=== PATIENT | female | born 1970 | race Caucasian/White ===

== ENCOUNTER 2017-11-03 17:40 | Emergency (ER) | payer OTHER ==
[2017-11-03] MEDS ORDERED: Phenergan 25 MG INJ IM ONE ×2 (19:34→21:15)
[2017-11-03] MEDS ORDERED: Hydromorphone 1 mg/ml Ampule IM ONE (19:34)
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
[2017-11-03] MEDS ORDERED: DILAUDID 2 MG INJECTION ONE (19:43)
[2017-11-03] MEDS ORDERED: Phenergan 25 MG INJ ONE ×2 (19:43→21:16)
[2017-11-03 20:03] LABS: Appearance CLEAR (CLEAR); Bilirubin NEGATIVE (NEGATIVE); Blood NEGATIVE Ery/ul (0-5); Glucose NEGATIVE (NEGATIVE); Ketones NEGATIVE (NEGATIVE); Leukocyte Esterase NEGATIVE (NEGATIVE); Nitrite NEGATIVE (NEGATIVE); Protein,Urine Dip NEGATIVE (Negative); Urobilinogen NORMAL mg/dL (0-1)
[2017-11-03 21:40] VITALS: BP 110/67; PULSE 100; O2SAT 100
== END 2017-11-03 21:39 | disposition home or self-care (01) ==
LOC: ED 17:40
DX: M54.31 Sciatica, right side (principal); I10 Essential (primary) hypertension; E11.9 Type 2 diabetes mellitus without complications; M79.7 Fibromyalgia; R20.0 Anesthesia of skin; Z79.899 Other long term (current) drug therapy
CPT/HCPCS: 81002; 96372; 99284; J1170; J2550

== ENCOUNTER 2021-03-17 20:17 | Observation (INO) | payer OTHER ==
[2021-03-17] MEDS ORDERED: Zofran 4 MG/2 ML VIAL IV ONE (20:33)
[2021-03-17] MEDS ORDERED: Sodium Chloride 0.9% 1000 ML 1,000 ML IV STA (20:33)
[2021-03-17] MEDS ORDERED: MORPHINE SULFATE 4 MG INJ IV ONE (20:33)
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
[2021-03-17 21:10] LABS: Appearance SLIGHTLY CLOUDY (CLEAR); Bacteria RARE /HPF (NEGATIVE); Bilirubin NEGATIVE (NEGATIVE); Blood NEGATIVE Ery/ul (0-5); Epithelial Cells FEW /HPF (FEW); Glucose NEGATIVE (NEGATIVE); Ketones NEGATIVE (NEGATIVE); Leukocyte Esterase NEGATIVE (NEGATIVE); Mucus SLIGHT /HPF (NEGATIVE); Nitrite NEGATIVE (NEGATIVE); Protein,Urine Dip NEGATIVE (Negative); Specific Gravity 1.016 (1.005-1.025); Urobilinogen NEGATIVE mg/dL (0-1); WBC 0-2 /HPF (0-5)
[2021-03-17] MEDS ORDERED: Zofran 4 MG/2 ML VIAL ONE (21:12)
[2021-03-17] MEDS ORDERED: Sodium Chloride 0.9% 1000 ML 1,000 ML ONE (21:12)
[2021-03-17] MEDS ORDERED: MORPHINE SULFATE 4 MG INJ ONE (21:12)
[2021-03-17 21:27] LABS: Absolute Neutrophil Ct (ANC) 15.09 (1.4-6.9); BASOPHIL % 0.2 % (0.0-0.4); Basophil (Absolute #) 0.03 (0-0.4); Eosinophil % 1.2 % (0.00-5.0); Eosinophil (Absolute #) 0.21 (0-0.5); Hemoglobin 14.7 gm/dl (12.0-16.0); Lymphocyte (Absolute #) 1.29 (1.0-4.6); Lymphocytes % 7.3 % (24.0-44.0); Mean Cell Volume 97.5 fl (78-100); Mean Corpuscular Hemoglobin 30.5 pg (26-32); Mean Corpuscular Hgb Concent. 31.3 g/dl (32-36); Mean Platelet Volume 10.7 fl (7.5-11.0); Monocyte (Absolute #) 1.08 (0.0-1.3); Monocytes % 6.1 % (0.0-12.0); Neutrophil % 85.2 % (36.0-66.0); Platelet Count 230 K/mm3 (150-450); Red Blood Count 4.82 M/mm3 (4.1-5.4); Red Cell Distribution Width 14.6 % (11.5-14.0); White Blood Count 17.7 K/mm3 (4.0-10.5)
[2021-03-17 21:40] LABS: ALBUMIN 4.3 g/dL (3.5-5.0); ALKALINE PHOSPHATASE 113 U/L (38-126); ANION GAP 13.6 MEQ/L (5-15); BLOOD UREA NITROGEN 11 mg/dL (7-17); CHLORIDE 100 mmol/L (98-107); Calcium 9.3 mg/dL (8.4-10.2); Carbon Dioxide 30 mmol/L (22-30); Creatinine 1 0.89 mg/dL (0.52-1.04); EST GLOMERULAR FILTRATION RATE > 60.0 ML/MIN; Glucose 122 mg/dL (74-106); Potassium 4.6 mmol/L (3.5-5.1); SGOT/AST 55 U/L (14-36); SGPT/ALT 35 U/L (0-35); SODIUM 138 mmol/L (137-145); Total Protein 7.8 g/dL (6.3-8.2)
[2021-03-17] MEDS ORDERED: LEVOFLOXACIN 750MG/150ML D5W 750 MG/150 ML BAG IV STA (22:15)
[2021-03-17] MEDS ORDERED: FLAGYL 500 MG IVPB 500 MG/100 ML BAG IV STA (22:15)
[2021-03-17] MEDS ORDERED: FLAGYL 500 MG IVPB 500 MG/100 ML BAG IV ONE (22:19)
[2021-03-17] MEDS ORDERED: LEVOFLOXACIN 750MG/150ML D5W 750 MG/150 ML BAG IV ONE (23:08)
[2021-03-18] MEDS ORDERED: DUONEB 0.5-3 MG/3 ml Neb IH PRN (02:16)
[2021-03-18] MEDS ORDERED: Zofran 4 MG/2 ML VIAL IV PRN (02:16)
[2021-03-18] MEDS: FLAGYL 500 MG IVPB 500 MG/100 ML BAG IV SCH ×4 (02:30→18:01)
[2021-03-18] MEDS: Sodium Chloride 0.9% 1000 ML 1,000 ML IV SCH ×3 (02:50→23:18)
[2021-03-18] MEDS: MORPHINE SULFATE 2 MG INJ IV PRN ×2 (02:50→07:46)
--- NOTE | 2021-03-18 08:38 | XRAY ---
Indication: Left back/abdomen/pelvis pain 3 days. No known injury. Multiple contiguous images obtained through the abdomen and pelvis without contrast. Comparison: September 02, 2012. Lung bases again demonstrates minimal dependent atelectasis. New 1 cm irregular left lower lobe noncalcified nodule considered indeterminant at this time. No infiltrate or effusion. Heart is not enlarged. New L4-L5 posterior fusion hardware and left back epidural stimulator device produces beam artifact limiting these levels. Noncontrasted stomach and bowel loops appear nonobstructed. Normal appendix. Mild fecal debris predominantly in the right hemicolon. Again descending and sigmoid colonic diverticulosis. Proximal sigmoid colon now demonstrates mild wall thickening with pericolonic stranding favoring diverticulitis. No free fluid/air. Again cholecystectomy. Interval hysterectomy. New 24 cm fatty hepatomegaly. Remaining liver, pancreas, spleen, adrenal glands, kidneys, ureters, bladder, and aorta are unremarkable for noncontrast exam. Osseous structures intact with minimal degenerative changes throughout the thoracolumbar spine. Impression: 1. Again colonic diverticulosis with new mild proximal sigmoid diverticulitis. No complications. 2. New 1 cm indeterminate left lower lobe noncalcified irregular nodule. Outside comparison studies recommended if available. If not available, CT chest with contrast exam may yield further information. 3. New fatty hepatomegaly, L4-L5 posterior fusion, and epidural stimulator device/leads.
[2021-03-18] MEDS: TYLENOL 325 MG PO PRN ×2 (08:41→18:54)
[2021-03-18] MEDS: PROTONIX 40 MG IV IV SCH (10:02)
[2021-03-18] MEDS ORDERED: DULAGLUTIDE 4.5 MG SQ SCH (10:30)
[2021-03-18] MEDS ORDERED: MEDICATION INTERVENTION MC SCH ×4 (10:45)
[2021-03-18] MEDS: TOPIRAMATE PO SCH ×2 (11:02→21:51)
[2021-03-18] MEDS: Cyclobenzaprine 10 MG PO SCH ×3 (11:02→21:51)
[2021-03-18] MEDS: ZOCOR 20MG PO SCH (11:02)
[2021-03-18] MEDS: THERAGRAN MULTIVITAMIN PO SCH (11:02)
[2021-03-18] MEDS: SYNTHROID 25 MCG PO SCH (11:03)
[2021-03-18] MEDS: BUMEX 1 MG PO SCH (11:03)
[2021-03-18] MEDS: Klor Con 10 MEQ PO SCH (11:03)
[2021-03-18] MEDS: XANAX 1 MG PO SCH ×3 (11:03→21:51)
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
[2021-03-18] MEDS ORDERED: AMITRIPTYLINE HCL 150 MG PO SCH (22:00)
[2021-03-18] MEDS ORDERED: LEVOFLOXACIN 750MG/150ML D5W 750 MG/150 ML BAG IV SCH (22:00)
[2021-03-19] MEDS: FLAGYL 500 MG IVPB 500 MG/100 ML BAG IV SCH ×2 (00:21→06:19)
[2021-03-19 05:11] LABS: Absolute Neutrophil Ct (ANC) 5.64 (1.4-6.9); BASOPHIL % 0.4 % (0.0-0.4); Basophil (Absolute #) 0.03 (0-0.4); Eosinophil % 4.3 % (0.00-5.0); Eosinophil (Absolute #) 0.33 (0-0.5); Hematocrit 41.5 % (35-47); Hemoglobin 12.8 gm/dl (12.0-16.0); Lymphocyte (Absolute #) 1.03 (1.0-4.6); Lymphocytes % 13.5 % (24.0-44.0); Mean Cell Volume 98.1 fl (78-100); Mean Corpuscular Hemoglobin 30.3 pg (26-32); Mean Corpuscular Hgb Concent. 30.8 g/dl (32-36); Mean Platelet Volume 11.1 fl (7.5-11.0); Monocyte (Absolute #) 0.58 (0.0-1.3); Monocytes % 7.6 % (0.0-12.0); Neutrophil % 74.2 % (36.0-66.0); Platelet Count 171 K/mm3 (150-450); Red Blood Count 4.23 M/mm3 (4.1-5.4); Red Cell Distribution Width 14.7 % (11.5-14.0); White Blood Count 7.6 K/mm3 (4.0-10.5)
[2021-03-19 05:28] LABS: ALBUMIN 3.6 g/dL (3.5-5.0); BLOOD UREA NITROGEN 8 mg/dL (7-17); CHLORIDE 107 mmol/L (98-107); Calcium 8.9 mg/dL (8.4-10.2); Carbon Dioxide 22 mmol/L (22-30); Creatinine 1 0.71 mg/dL (0.52-1.04); EST GLOMERULAR FILTRATION RATE > 60.0 ML/MIN; SGPT/ALT 43 U/L (0-35)
[2021-03-19 05:59] LABS: ALKALINE PHOSPHATASE 87 U/L (38-126); Glucose 91 mg/dL (74-106); SGOT/AST 44 U/L (14-36); SODIUM 137 mmol/L (137-145)
--- NOTE | 2021-03-19 08:21 | PCM.NOTE ---
Date and Time: 03/19/21819 Subjective Assessment: doing better - Review of Systems Constitutional: No Fever, No Chills Eyes: No Symptoms Ears, Nose, & Throat: No Symptoms Respiratory: No Cough, No Short Of Breath Cardiac: No Chest Pain, No Edema, No Syncope Abdominal/Gastrointestinal: No Abdominal Pain, No Nausea, No Vomiting, No Diarrhea Genitourinary Symptoms: No Dysuria Musculoskeletal: No Back Pain, No Neck Pain Skin: No Rash Neurological: No Dizziness, No Focal Weakness, No Sensory Changes Psychological: No Symptoms Endocrine: No Symptoms Hematologic/Lymphatic: No Symptoms Immunological/Allergic: No Symptoms Objective Exam General Appearance: no apparent distress, alert Neurologic Exam: alert, oriented x 3, cooperative, normal mood/affect, nml cerebellar function, sensation nml, No motor deficits Skin Exam: normal color, warm, dry Eye Exam: PERRL, EOMI, eyes nml inspection Ears, Nose, Throat Exam: normal ENT inspection, pharynx normal, moist mucous membranes Neck Exam: normal inspection, non-tender, supple, full range of motion Respiratory Exam: normal breath sounds, lungs clear, No respiratory distress Cardiovascular Exam: regular rate/rhythm, normal heart sounds Gastrointestinal/Abdomen Exam: soft, No tenderness, No mass Extremity Exam: normal inspection, normal range of motion Back Exam: normal inspection, normal range of motion, No CVA tenderness, No vertebral tenderness Pelvic Exam: deferred Rectal Exam: deferred OBJECTIVE DATA Vital Signs: Vital Signs - 24 hr Temp Pulse Resp BP Pulse Ox 03/19/21 04:00 97.5 F 86 20 148/91 97 03/19/21 00:00 96.6 F 86 16 151/90 97 03/18/21 20:00 98.0 F 92 H 16 155/83 96 03/18/21 16:00 98.0 F 100 H 20 140/73 95 03/18/21 12:00 97.8 F 96 H 16 118/61 95 Pain Assessment - Last Documented Pain Intensity [Back] 9 Pain Intensity 7 Pain Scale Used 0-10 Pain Scale Intake and Output: Intake & Output 03/16/21 03/17/21 03/18/21 03/19/21 11:59 11:59 11:59 11:59 Intake Total 240 1839 Output Total 1250 Balance 240 589 Weight 109.6 kg Lab Results: Lab Results-Last 24 Hours 03/18/21 03/18/21 03/18/21 Range/Units 11:29 16:29 20:28 WBC (4.0-10.5) K/mm3 RBC (4.1-5.4) M/mm3 Hgb (12.0-16.0) gm/dl Hct (35-47) % MCV (78-100) fl MCH (26-32) pg MCHC (32-36) g/dl RDW (11.5-14.0) % Plt Count (150-450) K/mm3 MPV (7.5-11.0) fl Gran % (36.0-66.0) % Eos # (Auto) (0-0.5) Absolute Lymphs (auto) (1.0-4.6) Absolute Monos (auto) (0.0-1.3) Lymphocytes % (24.0-44.0) % Monocytes % (0.0-12.0) % Eosinophils % (0.00-5.0) % Basophils % (0.0-0.4) % Absolute Granulocytes (1.4-6.9) Basophils # (0-0.4) Sodium (137-145) mmol/L Potassium (3.5-5.1) mmol/L Chloride (98-107) mmol/L Carbon Dioxide (22-30) mmol/L Anion Gap (5-15) MEQ/L BUN (7-17) mg/dL Creatinine (0.52-1.04) mg/dL Estimated GFR ML/MIN Glucose (74-106) mg/dL POC Glucometer 113 H 108 H 109 H (74 to 106) mg/dL Calcium (8.4-10.2) mg/dL Total Bilirubin (0.2-1.3) mg/dL AST (14-36) U/L ALT (0-35) U/L Alkaline Phosphatase (38-126) U/L Serum Total Protein (6.3-8.2) g/dL Albumin (3.5-5.0) g/dL 03/19/21 03/19/21 Range/Units 04:59 04:59 WBC 7.6 (4.0-10.5) K/mm3 RBC 4.23 (4.1-5.4) M/mm3 Hgb 12.8 (12.0-16.0) gm/dl Hct 41.5 (35-47) % MCV 98.1 (78-100) fl MCH 30.3 (26-32) pg MCHC 30.8 L (32-36) g/dl RDW 14.7 H (11.5-14.0) % Plt Count 171 (150-450) K/mm3 MPV 11.1 H (7.5-11.0) fl Gran % 74.2 H (36.0-66.0) % Eos # (Auto) 0.33 (0-0.5) Absolute Lymphs (auto) 1.03 (1.0-4.6) Absolute Monos (auto) 0.58 (0.0-1.3) Lymphocytes % 13.5 L (24.0-44.0) % Monocytes % 7.6 (0.0-12.0) % Eosinophils % 4.3 (0.00-5.0) % Basophils % 0.4 (0.0-0.4) % Absolute Granulocytes 5.64 (1.4-6.9) Basophils # 0.03 (0-0.4) Sodium 137 (137-145) mmol/L Potassium 4.0 (3.5-5.1) mmol/L Chloride 107 (98-107) mmol/L Carbon Dioxide 22 (22-30) mmol/L Anion Gap 12.0 (5-15) MEQ/L BUN 8 (7-17) mg/dL Creatinine 0.71 (0.52-1.04) mg/dL Estimated GFR > 60.0 ML/MIN Glucose 91 (74-106) mg/dL POC Glucometer (74 to 106) mg/dL Calcium 8.9 (8.4-10.2) mg/dL Total Bilirubin 0.20 (0.2-1.3) mg/dL AST 44 H (14-36) U/L ALT 43 H (0-35) U/L Alkaline Phosphatase 87 (38-126) U/L Serum Total Protein 7.0 (6.3-8.2) g/dL Albumin 3.6 (3.5-5.0) g/dL Radiology Exams: Radiology Procedures Category Date Time Status ABDOMEN AND PELVIS W/0 CONTRAS [CT] Stat Exams 03/17/21 20:53 Completed Assessment/Plan (1) Sigmoid diverticulitis Current Visit: Yes Status: Acute Assessment & Plan: improving, denies abdominal pain, continue present management Code(s): K57.32 - DVTRCLI OF LG INT W/O PERFORATION OR ABSCESS W/O BLEEDING
[2021-03-19] MEDS: THERAGRAN MULTIVITAMIN PO SCH (09:27)
[2021-03-19] MEDS: PROTONIX 40 MG IV IV SCH (09:27)
[2021-03-19] MEDS: TOPIRAMATE PO SCH (09:27)
[2021-03-19] MEDS: Cyclobenzaprine 10 MG PO SCH (09:27)
[2021-03-19] MEDS: ZOCOR 20MG PO SCH (09:27)
[2021-03-19] MEDS: SYNTHROID 25 MCG PO SCH (09:27)
[2021-03-19] MEDS: BUMEX 1 MG PO SCH (09:28)
[2021-03-19] MEDS: Klor Con 10 MEQ PO SCH (09:28)
[2021-03-19] MEDS: XANAX 1 MG PO SCH (09:28)
[2021-03-19] MEDS: Sodium Chloride 0.9% 1000 ML 1,000 ML IV SCH (09:35)
[2021-03-19] MEDS ORDERED: MULTIVITAMIN WITH MINERALS PO SCH (10:00)
[2021-03-19] MEDS ORDERED: NON-FORMULARY ITEM (Levothyroxine Sodium [Levothyroxine] 25 MCG) PO SCH (10:00)
[2021-03-19] MEDS ORDERED: BUPRENORPHINE HCL 75 MCG BC SCH (10:00)
[2021-03-19] MEDS ORDERED: NON-FORMULARY ITEM (Phentermine Hcl [Adipex-P] 37.5 MG) PO SCH (10:00)
[2021-03-19] MEDS ORDERED: LIPITOR 40MG PO SCH (10:00)
[2021-03-19 12:45] VITALS: BP 165/90; PULSE 67; O2SAT 92
== END 2021-03-19 13:35 | disposition home or self-care (01) ==
LOC: ED 20:17 → MED SURG 03-18 02:00
PROVIDERS: ADMIT General Practice; ATTEND General Practice
DX: K57.32 Diverticulitis of large intestine without perforation or abscess without bleeding (principal); M54.5 Low back pain; R10.32 Left lower quadrant pain; Z79.899 Other long term (current) drug therapy; E11.9 Type 2 diabetes mellitus without complications; I10 Essential (primary) hypertension; Z20.822 Contact with and (suspected) exposure to COVID-19
CPT/HCPCS: 36000; 36415; 74176; 80053; 81001; 82947; 85025; 87040; 96374; 96375; 99284; G0378; U0003; J1956; J2270; J2405; A9270-GY

== ENCOUNTER 2023-06-08 07:56 | Day surgery (SDC) | payer MEDICARE ==
[2012-06-24 10:43] VITALS: BP 126/77
[2023-06-08] MEDS ORDERED: LIDOCAINE HCL 2% 100 MG/5 ML IJ ONE (07:57)
[2023-06-08] MEDS ORDERED: Versed 2 MG/2 ML Injection ONE (09:53)
[2023-06-08] MEDS ORDERED: DIPRIVAN 200 MG/20 ML IV ONE (09:53)
[2023-06-08] MEDS ORDERED: Lactated Ringers 1,000 ML IV ONE (11:12)
--- NOTE | 2023-06-08 11:24 | XRAY ---
Indication: Bilateral L4-S1 MBB. Intraoperative fluoroscopy provided for 21 seconds. Single digital spot image submitted for interpretation demonstrates posterior needle tips projecting over the expected left and right L4-S1 nerve roots. Correlate with intraoperative findings/report. Incidental bilateral L4-L5 fusion hardware and partially visualized epidural leads.
--- NOTE | 2023-06-08 12:13 | XRAY ---
21 seconds of fluoroscopy was used in surgery for a bilateral L4-S1 MBB.
== END 2023-06-08 10:22 | disposition home or self-care (01) ==
LOC: SDC-PAIN 07:56
PROVIDERS: ATTEND Psychiatry & Neurology Pain Medicine
DX: M47.816 Spondylosis without myelopathy or radiculopathy, lumbar region (principal); E11.9 Type 2 diabetes mellitus without complications; Z79.899 Other long term (current) drug therapy
CPT/HCPCS: 64493; 64494; 72020; 77002; 82947; J2250; J2704